=== PATIENT | female | born 1990 | race Caucasian/White ===

== ENCOUNTER 2017-05-06 22:42 | Emergency (ER) | payer SELFPAY ==
[2017-05-06 22:48] VITALS: BP 128/73
[2017-05-07 00:10] LABS: Hematocrit 33.9 % (30.3-42.9); Hemoglobin 10.9 gm/dl (10.1-14.3); Mean Corpuscular HGB Conc 32 % (30-34); Mean Corpuscular Hemoglobin 29 pg (28-32); Mean Corpuscular Volume 91 fl (79-97); Platelet Count 375 K/mm3 (140-440); Red Blood Count 3.71 M/mm3 (3.65-5.03); Red Cell Distribution Width 17.6 % (13.2-15.2); White Blood Count 15.6 K/mm3 (4.5-11.0)
[2017-05-07 00:38] LABS: Anion Gap 20 mmol/L; BUN/Creatinine Ratio 17; Blood Urea Nitrogen 10 mg/dL (7-17); Calcium 8.7 mg/dL (8.4-10.2); Carbon Dioxide 21 mmol/L (22-30); Chloride 104.7 mmol/L (98-107); Glucose 173 mg/dL (65-100); Potassium 3.1 mmol/L (3.6-5.0); Sodium 143 mmol/L (137-145)
[2017-05-07 02:06] LABS: Basophils % (Manual) 0 % (0.0-1.8); Blastocytes % (Manual) 0 %
[2017-05-07 02:07] LABS: Platelet Clumps Rare; Platelet Estimate Consistent w Auto
[2017-05-07 02:16] LABS: Diff Status Complete
== END 2017-05-07 02:55 | disposition left against medical advice (07) ==
LOC: ED 22:42
DX: Z53.21 Procedure and treatment not carried out due to patient leaving prior to being seen by health care provider (principal)
CPT/HCPCS: 36415; 80048; 85007; 85025; G0480; 80320